=== PATIENT | female | born 1965 | race African-American/Black ===

== ENCOUNTER 2024-01-17 08:30 | Inpatient (IN) | payer BC ==
[~2024-01-17] VITALS: Ht 170.2 cm; Wt 85.7 kg
[2024-01-17] VITALS (25 sets, daily range): BP systolic 116–150; BP diastolic 82–119; PULSE 70–99; RESP 5–27; TEMP 36.6696–36.83628; O2SAT 86–100
[2024-01-17 09:16] LABS: BASOPHILS % 0.8 % (0.0-2.0); EOSINOPHILS % 0.9 % (0.0-5.0); HEMATOCRIT. 38.3 % (36.0-48.0); MEAN CORPUSCULAR HEMOGLOBIN 29.5 pg (28.0-32.0); MEAN CORPUSCULAR HGB CONC 33.9 g/dL (31.0-37.0); MEAN PLATELET VOLUME 7.3 fl (7.4-10.4); MONOCYTES % 11.4 % (2.0-8.0); NEUTROPHILS % 42.9 % (40.0-76.0); PLATELET 307 x1000/uL (130-400); RED BLOOD CELL COUNT 4.41 mill/uL (4.2-5.4); RED CELL DISTRIBUTION WIDTH 13.2 % (11.6-14.6); WHITE BLOOD COUNT 4.6 x1000/uL (4.5-11.0)
[2024-01-17 09:21] LABS: CHLORIDE 105 mEq/L (98-107); POTASSIUM 3.4 mEq/L (3.5-5.1); SODIUM 137 mEq/L (136-145)
[2024-01-17 09:22] LABS: CARBON DIOXIDE 26 mEq/L (21-32)
[2024-01-17 09:23] LABS: CALCIUM 9.1 mg/dL (8.7-10.4)
[2024-01-17 09:27] LABS: CREATININE 0.9 mg/dL (0.6-1.0); GLUCOSE 114 mg/dL (70-105); PROTHROMBIN TIME 11.1 sec (9.6-11.0); UREA NITROGEN BLOOD 11 mg/dL (9-23)
[2024-01-17] MEDS ORDERED: IOHEXOL-350 100 ML BOTTLE ONE (09:41)
[2024-01-17 09:43] LABS: TROPONIN I HIGH SENSITIVITY < 4 ng/L (3.0-34)
[2024-01-17 09:44] LABS: ETHANOL BLOOD < 10 mg/dL (<10)
[2024-01-17 10:03] LABS: CLARITY URINE CLEAR (CLEAR); COLOR URINE YELLOW (YELLOW); GLUCOSE URINE NEGATIVE (NEGATIVE); KETONES URINE NEGATIVE (NEGATIVE); LEUKOCYTE ESTERASE URINE NEGATIVE (NEGATIVE); NITRITE URINE NEGATIVE (NEGATIVE); OCCULT BLOOD URINE NEGATIVE (NEGATIVE); PH URINE 6.5 (4.5-8.0); PROTEIN URINE NEGATIVE (NEGATIVE); SPECIFIC GRAVITY URINE 1.054 (1.005-1.030)
[2024-01-17 10:24] LABS: *AMPHETAMINES SCREEN URINE NEGATIVE (NEGATIVE); *BARBITURATES SCREEN URINE NEGATIVE (NEGATIVE); *BENZODIAZEPINES SCREEN URINE NEGATIVE (NEGATIVE); *COCAINE SCREEN URINE NEGATIVE (NEGATIVE); CANNABINOID URINE SCREEN NEGATIVE (NEGATIVE); ECSTASY MDMA SCREEN URINE NEGATIVE (NEGATIVE); METHADONE URINE SCREEN NEGATIVE (NEGATIVE); OPIATES URINE SCREEN NEGATIVE (NEGATIVE); PHENCYCLIDINE URINE SCREEN NEGATIVE (NEGATIVE)
[2024-01-17] MEDS: TENECTEPLASE 50MG/VIAL IV ONE (11:00)
[2024-01-17] MEDS ORDERED: [UNRECOGNIZED DRUG - REMARK] XX SCH (11:00)
[2024-01-17] MEDS ORDERED: *TENECTEPLASE FOR AIS XX SCH (11:00)
[2024-01-17] MEDS: ACETAMINOPHEN 325MG TABLET PO ONE (11:33)
[2024-01-17] MEDS ORDERED: IPRATROPIUM/ALBUTEROL 0.5-3(2.5)MG/3ML NEB HHN PRN (13:30)
[2024-01-17] MEDS ORDERED: ACETAMINOPHEN 325MG TABLET PO PRN (13:30)
[2024-01-17] MEDS ORDERED: GUAIFENESIN 200MG/10ML SUGAR FREE UDC PO PRN (13:30)
[2024-01-17] MEDS: ONDANSETRON HCL 4MG/2ML INJ IV PRN (14:31)
[2024-01-17 15:07] LABS: THYROID STIMULATING HORMONE 1.07 uIU/mL (0.55-4.78)
[2024-01-17] MEDS: POTASSIUM CHLORIDE 20MEQ/PACKET PO NR (17:39)
[2024-01-17] MEDS: LORATADINE 10MG TABLET PO SCH (20:38)
[2024-01-17] MEDS: IBUPROFEN 200MG TABLET PO PRN (20:38)
[2024-01-17] MEDS: FAMOTIDINE 20MG TABLET PO SCH (20:39)
[2024-01-17] MEDS: POLYVINYL ALCOHOL OPHTH DROPS 15ML BOTHEYE PRN (20:39)
[2024-01-18] VITALS (39 sets, daily range): BP systolic 111–153; BP diastolic 78–109; PULSE 75–105; RESP 14–30; TEMP 36.3918–37.00296; O2SAT 89–100
[2024-01-18 06:11] LABS: CARBON DIOXIDE 25 mEq/L (21-32); CHLORIDE 106 mEq/L (98-107); POTASSIUM 3.6 mEq/L (3.5-5.1); SODIUM 141 mEq/L (136-145)
[2024-01-18 06:12] LABS: CALCIUM 9.5 mg/dL (8.7-10.4)
[2024-01-18 06:15] LABS: BASOPHILS % 0.9 % (0.0-2.0); EOSINOPHILS % 0.9 % (0.0-5.0); HEMATOCRIT. 39.7 % (36.0-48.0); HEMOGLOBIN. 13.6 g/dL (12.0-16.0); LYMPHOCYTES % 37.8 % (20.0-50.0); MEAN CORPUSCULAR HEMOGLOBIN 30.2 pg (28.0-32.0); MEAN CORPUSCULAR HGB CONC 34.3 g/dL (31.0-37.0); MEAN PLATELET VOLUME 8.2 fl (7.4-10.4); MONOCYTES % 10.5 % (2.0-8.0); NEUTROPHILS % 49.9 % (40.0-76.0); PLATELET 283 x1000/uL (130-400); RED BLOOD CELL COUNT 4.51 mill/uL (4.2-5.4); RED CELL DISTRIBUTION WIDTH 13.4 % (11.6-14.6)
[2024-01-18 06:17] LABS: CREATININE 0.9 mg/dL (0.6-1.0); GLUCOSE 95 mg/dL (70-105); TRIGLYCERIDE 96 mg/dL (0-150); UREA NITROGEN BLOOD 13 mg/dL (9-23)
[2024-01-18 06:18] LABS: LDL CHOLESTEROL 101 mg/dL (5-100)
[2024-01-18 06:19] LABS: CHOLESTEROL 162 mg/dL (<200); HDL CHOLESTEROL 37 mg/dL (>65)
[2024-01-18] MEDS: ASPIRIN 81MG EC TABLET PO SCH (09:00)
[2024-01-18] MEDS: CLOPIDOGREL 75MG TABLET PO SCH (09:00)
[2024-01-18] MEDS: ATORVASTATIN CALCIUM 40MG TABLET PO SCH (20:41)
[2024-01-19] VITALS: BP 130/94; PULSE 86; RESP 20; TEMP 37.00296; O2SAT 96
[2024-01-19 04:00] VITALS: BP 141/94; PULSE 92; RESP 22; TEMP 36.50292; O2SAT 96
[2024-01-19 07:45] VITALS: BP 145/99; PULSE 82; RESP 14; TEMP 36.72516; O2SAT 95
[2024-01-19] MEDS: ACETAMINOPHEN 325MG TABLET PO PRN (09:46)
[2024-01-19] MEDS: AMLODIPINE 5MG TABLET PO SCH (11:01)
[2024-01-19 12:00] VITALS: BP 132/89; PULSE 93; RESP 26; TEMP 37.05852; O2SAT 100
[2024-01-19 16:00] VITALS: BP 132/97; PULSE 112; RESP 20; TEMP 36.89184; O2SAT 100
[2024-01-19 20:00] VITALS: BP 136/98; PULSE 112; RESP 21; TEMP 36.83628; O2SAT 98
[2024-01-20] VITALS: BP 130/92; PULSE 91; RESP 32; TEMP 36.9474; O2SAT 98
[2024-01-20 04:00] VITALS: BP 131/88; PULSE 86; RESP 24; TEMP 36.83628; O2SAT 99
[2024-01-20 08:00] VITALS: BP 128/94; PULSE 91; RESP 19; TEMP 36.78072; O2SAT 99
[2024-01-20] MEDS: DOCUSATE SODIUM 100MG CAPSULE PO PRN (11:23)
[2024-01-20 12:00] VITALS: BP 138/94; PULSE 97; RESP 20; TEMP 36.72516; O2SAT 98
[2024-01-20] MEDS: METOPROLOL TARTRATE 25MG TABLET PO NR (14:05)
[2024-01-20 16:00] VITALS: BP 134/96; PULSE 85; RESP 16; TEMP 36.6696; O2SAT 97
[2024-01-20 20:00] VITALS: BP 128/90; PULSE 86; RESP 18; TEMP 36.72516; O2SAT 96
[2024-01-20] MEDS: METOPROLOL TARTRATE 25MG TABLET PO SCH (20:20)
[2024-01-20] MEDS: GABAPENTIN 100MG CAPSULE PO SCH (21:36)
[2024-01-21] VITALS: BP 127/89; PULSE 87; RESP 17; O2SAT 97
[2024-01-21 04:00] VITALS: BP 117/82; PULSE 68; RESP 14; TEMP 36.78072; O2SAT 99
[2024-01-21 08:00] VITALS: BP 121/85; PULSE 85; RESP 20; TEMP 36.72516; O2SAT 95
[2024-01-21 12:00] VITALS: BP 114/86; PULSE 92; RESP 12; TEMP 36.6696; TEMP 36.66960; O2SAT 98
[2024-01-21 14:33] VITALS: BP 117/82; PULSE 68; TEMP 98.1; O2SAT 100
[2024-01-21 15:51] VITALS: BP 131/85; PULSE 83; RESP 16; O2SAT 98
== END 2024-01-21 17:11 | disposition home health service (06) | DRG 62 ==
LOC: ER 08:46 → MICUSO 10:02 → EDBEDREQSVC 11:01 → EDBEDREQ 11:33 → 3WST 01-18 22:03
PROVIDERS: ADMIT Internal Medicine; ATTEND Internal Medicine
DX: I63.9 Cerebral infarction, unspecified (principal); G81.94 Hemiplegia, unspecified affecting left nondominant side; I11.9 Hypertensive heart disease without heart failure; I44.4 Left anterior fascicular block; E87.6 Hypokalemia; K52.9 Noninfective gastroenteritis and colitis, unspecified; J45.909 Unspecified asthma, uncomplicated; G43.909 Migraine, unspecified, not intractable, without status migrainosus; K21.9 Gastro-esophageal reflux disease without esophagitis; D72.821 Monocytosis (symptomatic); R29.810 Facial weakness; Z90.49 Acquired absence of other specified parts of digestive tract; Z90.710 Acquired absence of both cervix and uterus; Z79.82 Long term (current) use of aspirin; I25.2 Old myocardial infarction; Z79.02 Long term (current) use of antithrombotics/antiplatelets; Z82.49 Family history of ischemic heart disease and other diseases of the circulatory system; Z82.3 Family history of stroke
CPT/HCPCS: 36415; 70496; 70498; 70551; 71045; 80048; 80061; 80305; 80320; 81003; 82550; 82962; 83036; 83880; 84443; 84484; 85025; 92610; 93005; 93306; 97116; 97162; 97166; 99291; J2405; J3101; Q9967; G0480